=== PATIENT | female | born 1950 | race Caucasian/White ===

== ENCOUNTER 2018-09-18 13:51 | Emergency (ER) | payer OTHER ==
--- OUTSIDE RECORDS SUMMARY | 2018-09-18 13:54 | XMS REPORT | Clinical Summary ---
:1950 Author Organization [facility] Address [address] [place] [address] Care Team Providers Name Role Phone Asked, No Pcp Primary Care Provider Unavailable Allergies Active Allergy Reactions Severity Noted Date Comments Erythromycin 12/29/2015 Tetracycline 12/29/2015 Medications Medication Sig Dispensed Refills Start Date End Date Status levothyroxine (SYNTHROID, 10 11/30/2015 Active LEVOTHROID) 50 MCG tablet rosuvastatin (CRESTOR) 20 MG tablet 10 12/20/2015 Active losartan (COZAAR) 50 MG tablet 4 12/26/2015 Active Active Problems Problem Noted Date Effusion of ankle joint 12/29/2015 Effusion of wrist joint 12/29/2015 Pain, joint, hand 12/29/2015 Fever 12/29/2015 Chronic cough 12/29/2015 Family History Medical History Relation Name Comments Rheum arthritis Mother Relation Name Status Comments Mother Social History Tobacco Use Types Packs/Day Years Used Date Never Assessed Sex Assigned at Date Recorded Not on file Job Start Date Occupation Industry Not on file Not on file Not on file Travel History Travel Start Travel End No recent travel history available. Last Filed Vital Signs Not on file Plan of Treatment Health Maintenance Due Date Last Done Comments BREAST CANCER SCREENING 01/11/2002 COLONOSCOPY SCREENING 01/11/2002 SHINGLES VACCINES (#1) 01/11/2002 65+ PNEUMOCOCCAL VACCINE (1 of 2 - PCV13) 01/11/2017 INFLUENZA VACCINE 10/29/2018 Results Not on fileafter 09/17/2017 Advance Directives Patient has advance care planning documents on file. For more information, please contact:Ryan Tierney[address] [place] [address]
--- NOTE | 2018-09-18 14:37 | RAD REPORT ---
EXAM DESCRIPTION: RAD - Wrist Right 3 View - 09/18/2018 2:26 pm CLINICAL HISTORY: Fall, right wrist pain COMPARISON: None. FINDINGS: There is a transverse fracture through the metaphyseal portion of the distal radius. Appro ximately 15 degrees dorsal angulation is present with impaction along the dorsal margin. No pathologi c component. Ulna styloid is fractured. There is no dislocation or periosteal reaction noted. Radioca rpal joint space is slightly narrowed. No foreign body or other soft tissue abnormality. IMPRESSION: Distal right radius fracture with mild dorsal angulation and impaction along the dorsal margin.
[2018-09-18] MEDS ORDERED: KETOROLAC 30 MG/ML INJ ONE (14:45)
--- NOTE | 2018-09-18 16:32 | EDPHYS ---
Physician Documentation [facility] Name: Fely Cid Age: 68 yrs Sex: Female : 1950 Arrival Date: 09/18/2018 Time: 13:59 Bed 5 Private MD: ED Physician Parish Jules HPI: 09/18 14:16 This 68 yrs old presents to ER via Ambulatory with complaints of Wrist Injury. jr8 14:16 The patient or guardian reports decreased range of motion, deformity, pain. The jr8 complaints affect the right wrist diffusely. Context: The problem was sustained at home, resulted from a fall. Onset: The symptoms/episode began/occurred acutely, today. Modifying factors: The symptoms are alleviated by nothing, the symptoms are aggravated by movement. Associated signs and symptoms: The patient has no apparent associated signs or symptoms. The patient has not experienced similar symptoms in the past. The patient has not recently seen a physician. Stated that she tripped at home falling on outstretched hand. Williamson a pop in her right wrist region. Immediate swelling and presumed deformity to wrist present upon arrival . 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 - Social history:: Smoking status: Patient/guardian denies using tobacco. - Ebola Screening: : Patient denies travel to an Ebola-affected area in the 21 days before illness onset. ROS: 14:16 Eyes: Negative for injury, pain, redness, and discharge, ENT: Negative for injury, jr8 pain, and discharge, Neck: Negative for injury, pain, and swelling, Cardiovascular: Negative for chest pain, palpitations, and edema, Respiratory: Negative for shortness of breath, cough, wheezing, and pleuritic chest pain, Abdomen/GI: Negative for abdominal pain, nausea, vomiting, diarrhea, and constipation, Back: Negative for injury and pain, Skin: Negative for injury, rash, and discoloration. 14:16 MS/extremity: Positive for decreased range of motion, deformity, ecchymosis, pain, swelling, tenderness, of the right wrist. Exam: 14:16 Eyes: Pupils equal round and reactive to light, extra-ocular motions intact. Lids and jr8 lashes normal. Conjunctiva and sclera are non-icteric and not injected. Cornea within normal limits. Periorbital areas with no swelling, redness, or edema. ENT: Nares patent. No nasal discharge, no septal abnormalities noted. Tympanic membranes are normal and external auditory canals are clear. Oropharynx with no redness, swelling, or masses, exudates, or evidence of obstruction, uvula midline. Mucous membranes moist. Neck: Trachea midline, no thyromegaly or masses palpated, and no cervical lymphadenopathy. Supple, full range of motion without nuchal rigidity, or vertebral point tenderness. No Meningismus. Cardiovascular: Regular rate and rhythm with a normal S1 and S2. No gallops, murmurs, or rubs. Normal PMI, no JVD. No pulse deficits. Respiratory: Lungs have equal breath sounds bilaterally, clear to auscultation and percussion. No rales, rhonchi or wheezes noted. No increased work of breathing, no retractions or nasal flaring. Abdomen/GI: Soft, non-tender, with normal bowel sounds. No distension or tympany. No guarding or rebound. No evidence of tenderness throughout. Back: No spinal tenderness. No costovertebral tenderness. Full range of motion. Skin: Warm, dry with normal turgor. Normal color with no rashes, no lesions, and no evidence of cellulitis. Neuro: Awake and alert, GCS 15, oriented to person, place, time, and situation. Cranial nerves II-XII grossly intact. Motor strength 5/5 in all extremities. Sensory grossly intact. Cerebellar exam normal. Normal gait. 14:16 Musculoskeletal/extremity: Extremities: grossly normal except: noted in the right wrist: decreased ROM, pain, swelling, tenderness, over the right dorsal wrist, ROM: Patient has limited ROM due to pain , Circulation is intact in all extremities. Pulses: noted to be 2+ in the right radial artery and left radial artery, Sensation intact. Vital Signs: 14:06 BP 153 / 84; Pulse 72; Resp 18; Temp 97.7; Pulse Ox 99% on R/A; Weight 88.45 kg (R); aj1 Height 5 ft. 7 in. (170.18 cm) (R); 15:19 BP 147 / 79; Pulse 75; Resp 16; Temp 98; Pulse Ox 99% ; bp 14:06 Body Mass Index 30.54 (88.45 kg, 170.18 cm) aj1 Procedures: 14:38 Splinting: Splint applied to right wrist using Orthoglass splint, applied by tech. jr8 Examined by me, post splint application: neurovascular intact, 2+ distal pulses palpable, brisk capillary refill noted, Patient tolerated well. MDM: 14:01 Patient medically screened. jr8 14:36 Data reviewed: vital signs, nurses notes, radiologic studies, plain films. Data jr8 interpreted: Pulse oximetry: on room air is 99 %. Interpretation: normal. Counseling: I had a detailed discussion with the patient and/or guardian regarding: the historical points, exam findings, and any diagnostic results supporting the discharge/admit diagnosis, radiology results, the need for outpatient follow up, a orthopedic surgeon, to return to the emergency department if symptoms worsen or persist or if there are any questions or concerns that arise at home. ED course: Explained to patient that she has a stable radial and ulnar styloid fracture to the left wrist. Patient wanting me to page Dr. Branham to see if he will see her today. Explained to her that I can call but that he will more then likely want her to f/u on Friday since he is in Surgery. . ED course: Called Dr. Branham and consulted him. Wants her to just f/u on Friday . 09/18 14:06 Order name: XRAY Wrist RIGHT 3 view jr8 09/18 15:16 Order name: RAD EDMS Administered Medications: 14:15 Drug: TORadol - Ketorolac 15 mg {Note: GIVEN IM PER PROVIDER.} Route: IVP; Site: Other; bp 14:40 Follow up: Response: Pain is decreased bp Disposition: 15:28 Co-signature as Attending Physician, Parish Jules MD. rn Disposition: 09/18/18 14:40 Discharged to Home. Impression: Distal Radius fracture of the right wrist, Styloid proccess fracture of the right wrist . - Condition is Stable. - Discharge Instructions: Wrist Fracture Treated With Immobilization. - Prescriptions for Ibuprofen 800 mg Oral Tablet - take 1 tablet by ORAL route every 12 hours As needed take with food; 20 tablet. - Medication Reconciliation Form, Thank You Letter, Antibiotic Education, Prescription Opioid Use form. - Follow up: Kaiden Branham MD; When: 09/21/2018. - Problem is new. - Symptoms have improved. Signatures: Dispatcher [employer] EDBriana Dupont RN RN aj1 Parish Jules MD MD rn Roszak, Josh, PA PA jr8 Daniel Dyer RN RN bp Corrections: (The following items were deleted from the chart) 14:37 14:06 IV Saline Lock ordered. jr8 bp 15:20 14:40 09/18/2018 14:40 Discharged to Home. Impression: Distal Radius fracture of the bp right wrist; Styloid proccess fracture of the right wrist . Condition is Stable. Forms are Medication Reconciliation Form, Thank You Letter, Antibiotic Education, Prescription Opioid Use. Follow up: Kaiden Branham; When: 09/21/2018. Problem is new. Symptoms have improved. jr8
--- NOTE | 2018-09-18 16:33 | ER ---
Nurse's Notes [facility] Name: Fely Cid Age: 68 yrs Sex: Female : 1950 Arrival Date: 09/18/2018 Time: 13:59 Bed 5 Private MD: Diagnosis: Distal Radius fracture of the right wrist;Styloid proccess fracture of the right wrist Presentation: 09/18 14:04 Presenting complaint: Patient states: She lost her balance and fell backwards landing aj1 on her right wrist. Reports that she felt a pop when she fell. Transition of care: patient was not received from another setting of care. Onset of symptoms was September 18, 2018. Risk Assessment: Do you want to hurt yourself or someone else? Patient reports no desire to harm self or others. Initial Sepsis Screen: Does the patient meet any 2 criteria? No. Patient's initial sepsis screen is negative. Does the patient have a suspected source of infection? No. Patient's initial sepsis screen is negative. Care prior to arrival: None. 14:04 Method Of Arrival: Ambulatory aj1 14:04 Acuity: GIOVANA 3 aj1 Triage Assessment: 14:06 General: Appears in no apparent distress. uncomfortable, Behavior is calm, cooperative, aj1 appropriate for age. Pain: Complains of pain in right wrist. Neuro: Level of Consciousness is awake, alert, obeys commands. Cardiovascular: Patient's skin is warm and dry. Respiratory: Airway is patent Respiratory effort is even, unlabored, Respiratory pattern is regular, symmetrical. Musculoskeletal: Range of motion: limited in left wrist. Injury Description: Patient lost her balance. 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 - Social history:: Smoking status: Patient/guardian denies using tobacco. - Ebola Screening: : Patient denies travel to an Ebola-affected area in the 21 days before illness onset. Screenin:05 Abuse screen: Denies threats or abuse. Denies injuries from another. Nutritional bp screening: No deficits noted. Tuberculosis screening: No symptoms or risk factors identified. Fall Risk None identified. Assessment: 14:05 General: SEE TRIAGE NTOE. bp 15:19 Reassessment: PT D/C HOME AMBULATORY WITH FAMILY, DX WITH DISTAL RADIUS FX. bp Vital Signs: 14:06 BP 153 / 84; Pulse 72; Resp 18; Temp 97.7; Pulse Ox 99% on R/A; Weight 88.45 kg (R); aj1 Height 5 ft. 7 in. (170.18 cm) (R); 15:19 BP 147 / 79; Pulse 75; Resp 16; Temp 98; Pulse Ox 99% ; bp 14:06 Body Mass Index 30.54 (88.45 kg, 170.18 cm) aj1 ED Course: 13:59 Patient arrived in ED. mr 14:01 Florentino Ortiz PA is PHCP. jr8 14:01 Parish Jules MD is Attending Physician. jr8 14:05 Triage completed. aj1 14:05 Patient has correct armband on for positive identification. Bed in low position. Call bp light in reach. Side rails up X2. Adult w/ patient. 14:06 Arm band placed on Patient placed in an exam room. aj1 14:16 Daniel Dyer, BUCK is Primary Nurse. bp 14:19 X-ray completed. Portable x-ray completed in exam room. Patient tolerated procedure jb2 well. 14:39 Kaiden Branham MD is Referral Physician. jr8 15:14 Caden wrap to right elbow and right wrist Orthoglass splint: Sugar tong splint applied on jp3 right arm. Sling applied to right arm. 15:17 No provider procedures requiring assistance completed. Patient did not have IV access bp during this emergency room visit. Administered Medications: 14:15 Drug: TORadol - Ketorolac 15 mg {Note: GIVEN IM PER PROVIDER.} Route: IVP; Site: Other; bp 14:40 Follow up: Response: Pain is decreased bp Outcome: 14:40 Discharge ordered by . jr8 15:18 Discharged to home ambulatory, with family. bp 15:18 Condition: stable 15:18 Discharge instructions given to patient, Instructed on discharge instructions, follow up and referral plans. medication usage, Demonstrated understanding of instructions, follow-up care, medications, Prescriptions given X 1. 15:20 Patient left the ED. bp Signatures: Briana Gregory RN RN aj1 Madisyn Magaña mr Danielle, [place] jb2 Florentino Ortiz PA PA jr8 Daniel Dyer, BUCK RN bp Gio Reyes jp3
== END 2018-09-18 15:20 | disposition home or self-care (01) ==
LOC: ER 13:51
PROC: 2W3CX1Z Immobilization of Right Lower Arm using Splint (ICD-10-PCS; principal; 2018-09-18)
DX: S52.501A Unspecified fracture of the lower end of right radius, initial encounter for closed fracture (principal); S52.611A Displaced fracture of right ulna styloid process, initial encounter for closed fracture; W01.0XXA Fall on same level from slipping, tripping and stumbling without subsequent striking against object, initial encounter; Z88.1 Allergy status to other antibiotic agents; I10 Essential (primary) hypertension; E78.5 Hyperlipidemia, unspecified; E03.9 Hypothyroidism, unspecified
CPT/HCPCS: 96374; 99283

== ENCOUNTER 2019-08-27 21:30 | Observation (INO) | payer OTHER ==
--- OUTSIDE RECORDS SUMMARY | 2019-08-27 21:33 | XMS REPORT | Clinical Summary ---
:1950 Author Organization [facility] Address [address] [place] [address] Care Team Providers Name Role Phone Asked, No Pcp Primary Care Provider Unavailable Allergies Active Allergy Reactions Severity Noted Date Comments Erythromycin 12/29/2015 Tetracycline 12/29/2015 Medications Medication Sig Dispensed Refills Start Date End Date Status levothyroxine (SYNTHROID, 10 11/30/2015 Active LEVOTHROID) 50 MCG tablet rosuvastatin (CRESTOR) 20 MG tablet 11/30 Active losartan (COZAAR) 50 MG tablet 4 6 Active Active Problems Problem Noted Date Effusion [...] of 2 - PCV13) 01/11/2017 INFLUENZA VACCINE 10/30/2019 Results Not on fileafter 08/26/2018 Advance Directives For more information, please contact: [phone] Type Date 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
[2019-08-27 22:54] LABS: Absolute Lymphocytes (CBC) 2.3 K/uL (0.7-4.9); Basophils % 0.9 % (0-1.3); Hematocrit 36.1 % (36.0-45.0); Lymphocytes % 29.7 % (15.3-44.8); MPV 10.3 fL (7.6-11.3); RBC Red Blood Cell Count 3.76 M/uL (3.86-4.86)
[2019-08-27 22:55] LABS: Protime INR 0.85
[2019-08-27 23:17] LABS: ALT/SGPT 24 U/L (12-78); AST/SGOT 16 U/L (15-37); Albumin 3.6 g/dL (3.4-5.0); Alkaline Phosphatase 91 U/L (45-117); BUN Blood Urea Nitrogen 20 mg/dL (7-18); Bicarbonate 29 mmol/L (21-32); Bilirubin Direct < 0.1 mg/dL (0-0.2); Bilirubin Total 0.2 mg/dL (0.2-1.0); Glucose Level 90 mg/dL (74-106); Magnesium 2.3 mg/dL (1.8-2.4); NT PRO-BNP 64 pg/mL (<125); Potassium 4.1 mmol/L (3.5-5.1); Protein, Total 6.9 g/dL (6.4-8.2); Sodium Level 144 mmol/L (136-145); Troponin (Emerg Dept Use Only) < 0.02 ng/mL (0.0-0.045)
[2019-08-28] MEDS ORDERED: ASPIRIN 81 MG CHEWABLE TABLET ONE (00:47)
--- NOTE | 2019-08-28 00:52 | P.HP ---
Certification for Inpatient Patient admitted to: Observation With expected LOS: <2 Midnights Practitioner: I am a practitioner with admitting privileges, knowledge of patient current condition, hospital course, and medical plan of care. Services: Services provided to patient in accordance with Admission requirements found in Title 42 Section 412.3 of the Code of Federal Regulations Patient History Date of Service: 08/28/19 Reason for admission: Chest pressure History of Present Illness: 69-year-old woman with a history of hypertension and hypothyroidism presented emergency department with a complaint of chest pressure that has been present for about 1 week, intermittent in nature, severe to described as moderate. Patient reports associated palpitation and lightheadedness. She has apparently had similar problems in the past and have undergone stress test and wore a Holter monitor without identifying the course of her symptoms. She denied any cough or shortness of breath. She denied any fever. Chest x-ray done in the ED shows no acute disease. EKG demonstrated normal sinus rhythm. Initial troponin negative. Her risk factors include hyperlipidemia and hypertension. Patient is placed under observation for ACS rule out and cardiac monitoring. Allergies Tetracyclines Allergy (Verified 09/18/18 14:07) Hives/Rash - Past Medical/Surgical History -: Hypertension -: Hyperlipidemia -: Hypothyroidism - Family History Father -: Cancer - Social History Smoking Status: Never smoker Alcohol use: Yes CD- Drugs: No Caffeine use: Yes Place of Residence: Home Review of Systems Other: Except as documented, all other systems reviewed and negative. Physical Examination - Physical Exam General: Alert, In no apparent distress, Oriented x3 HEENT: Mucous membr. moist/pink, Sclerae nonicteric Neck: Supple, JVD not distended Respiratory: Clear to auscultation bilaterally, Normal air movement Cardiovascular: No edema, Normal pulses, Regular rate/rhythm Gastrointestinal: Normal bowel sounds, Soft and benign, No tenderness Musculoskeletal: No swelling, No erythema Integumentary: No rashes Neurological: Normal speech, Normal strength at 5/5 x4 extr - Studies Laboratory Data (last 24 hrs) 08/27/19 22:38: PT 10.1, INR 0.85 08/27/19 22:38: WBC 7.7, Hgb 12.2, Hct 36.1, Plt Count 168 08/27/19 22:38: Sodium 144, Potassium 4.1, BUN 20 H, Creatinine 1.33 H, Glucose 90, Magnesium 2.3, Total Bilirubin 0.2, AST 16, ALT 24, Alkaline Phosphatase 91 Assessment and Plan - Problems (Diagnosis) (1) Chest pressure Current Visit: Yes Status: Acute (2) Lightheadedness Current Visit: Yes Status: Acute (3) Hypothyroidism Current Visit: Yes Status: Acute (4) Hypertension Current Visit: Yes Status: Acute - Plan Place under observation. Telemetry Trend troponin Obtain echocardiogram Cardiology consult Patient heart rate is borderline bradycardic. Hold bisoprolol Continue hydrochlorothiazide for hypertension May have to replace bisoprolol with amlodipine. Checked TSH Continue home dose Synthroid. - Advance Directives Does patient have a Living Will: No Does patient have a Durable POA for Healthcare: No
[2019-08-28] MEDS ORDERED: hydroCHLOROthiazide 12.5 MG CAP PO ONE (02:05)
[2019-08-28 02:11] VITALS: BMI 29.7
[2019-08-28 02:12] VITALS: O2SAT 99
[2019-08-28 03:12] LABS: HDL Cholesterol 59 mg/dL (40-60); LDL Cholesterol, Calculated 104 (<130); Troponin I < 0.02 ng/mL (0.0-0.045)
[2019-08-28] MEDS ORDERED: ENOXAPARIN 40 MG/0.4 ML SQ SCH (09:00)
[2019-08-28] MEDS ORDERED: ASPIRIN EC 81 MG TAB PO SCH (09:00)
--- NOTE | 2019-08-28 12:01 | RAD REPORT ---
EXAM DESCRIPTION: RAD - Chest Single View - 08/27/2019 10:27 pm CLINICAL HISTORY: CHEST PAIN Chest pain. COMPARISON: CHEST SINGLE VIEW dated 04/06/2009; CHEST PA AND LAT 2 VIEW dated 01/17/1998 FINDINGS: Portable technique limits examination quality. The lungs are grossly clear. The heart is normal in size. No displaced fractures. IMPRESSION: No acute intrathoracic process suspected.
[2019-08-28 13:55] VITALS: BP 143/64; TEMP 97.7
--- NOTE | 2019-08-28 17:44 | CON ---
Date of Consultation: 08/28/2019 Reason For Consultation: Chest pain. History Of Present Illness: This is a 69-year-old female, history of hypertension, dyslipidemia, and hypothyroidism. She presented to the emergency room due to complaints of chest pressure that is rad iating to the left shoulder. Also, felt some nausea and vomited. Apparently, she has established ca rdiologist as an outpatient and had a stress test last time about 2 years ago that was negative. Thi s chest pressure now is becoming more frequent lately where it used to come once every 2 to 3 months, now it is a little more frequent and yesterday the attack was significant enough for her to decide t o come the emergency room. Since the last attack that lasted about 30 minutes, patient is chest pain free. Some of other symptom that she was having is dizziness, especially with movement. She denies having any nausea, vomiting, or diarrhea at the present time. Past Medical History: As outlined above in HPI. Medications: Refer to reconciliation sheet for detailed list. Allergies: ERYTHROMYCIN AND TETRACYCLINE. Social History: Does not smoke or drink. Does not use any drugs. Family History: No premature coronary artery disease or cancer. Review of Systems: All systems reviewed and they were negative except what is mentioned in the HPI. Physical Examination: Vital Signs: Temperature of 96.4, pulse of 61, breathing at 16, blood pressure 138/61, saturating 98 % on room air. General: Pleasant middle-aged female in no apparent distress. Head and Neck: Pupils are equal and reactive to light. Intact eye movements. No JVD. No cervical lymphadenopathy. Neck is supple. Thyroid is not enlarged. Lungs: Clear to auscultation bilaterally. No rhonchi, rales, or crackles. No accessory muscle use. Heart: Regular rate and rhythm. No extra sounds. Abdomen: Soft, nontender. Bowel sounds positive. No organomegaly. No masses or hernia. No rigidi ty or rebound. Extremities: No edema, clubbing, or cyanosis. Intact pulses. Skin: No rash. Neurologic: Alert, awake, oriented x3. No acute focal deficits appreciated. Lymph Nodes: No cervical or axillary lymphadenopathy. Investigations: Troponins x3 are negative and her creatinine is 1.33. LDL cholesterol is 104. TSH is 2.0. Assessment And Recommendation: 1.Chest pain. Has some typical features. However, it is not related to exertion per se and she has been pain free. I had a long discussion with her on further workup that needs to be done and recomm ended stress test versus directly going to coronary angiogram as her symptoms are more frequent recen tly. She expressed the wish to go home today as she has been feeling well. Since myocardial infarct ion was ruled out, at this point, I will be okay with her going home with strict instructions to repo rt to the emergency room immediately if any chest pain. Her EKG was totally normal. I gave her an o ption for a stress test versus coronary angiogram. She will think over it with her over the weekend and will contact me on Friday to proceed. Meanwhile, recommend aspirin 81 mg daily and patie nt probably can be released with some sublingual nitroglycerin for chest pain if needed. I would lik e to see the patient in the office this coming week to arrange for further plan of evaluation to rule out ischemic heart disease. I had a long discussion with her and her and they are agreeable to the plan. 2.Hypertension. Blood pressure is controlled. Notes that her creatinine is slightly elevated. It could be due to some dehydration, maybe hydrochlorothiazide should be discontinued and allow proper h ydration and reevaluate. 3.Dizziness. Part of her symptoms is probably due to dehydration. Now recommend to discontinue hyd rochlorothiazide and hydrated properly and reevaluate creatinine later. 4.Hyperlipidemia. Continue statin. Thank you for very much for this consultation. /ABE Voice ID: [id number] Report ID: [id number]
--- NOTE | 2019-08-30 17:31 | ER ---
Nurse's Notes [facility] Name: Fely Cid Age: 69 yrs Sex: Female : 1950 Arrival Date: 08/27/2019 Time: 21:34 Bed 18 Private MD: Diagnosis: Chest pain, unspecified Presentation: 08/26 21:39 Chief complaint: Patient states: Chest tightness and heaviness radiating to the back, ca1 lightheaded on and off for about a week. Tonight about 30 minutes ago, it has been more pronounced. Coronavirus screen: Proceed with normal triage. Patient denies a cough. Patient denies shortness of breath or difficulty breathing. Patient denies measured and/or subjective temperature greater than 100.4F prior to today's visit. Patient denies travel on a cruise ship or to a country the [facility] currently lists as an affected area. Patient denies contact with known and/or suspected case of COVID-19. Ebola Screen: Patient negative for fever greater than or equal to 101.5 degrees Fahrenheit, and additional compatible Ebola Virus Disease symptoms Patient denies exposure to infectious person. Patient denies travel to an Ebola-affected area in the 21 days before illness onset. No symptoms or risks identified at this time. Initial Sepsis Screen: Does the patient meet any 2 criteria? No. Patient's initial sepsis screen is negative. Does the patient have a suspected source of infection? No. Patient's initial sepsis screen is negative. Risk Assessment: Do you want to hurt yourself or someone else? Patient reports no desire to harm self or others. Onset of symptoms was August 27, 2019. 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 - Social history:: Smoking status: Patient denies any tobacco usage or history of. Screenin:45 Abuse screen: Denies threats or abuse. Denies injuries from another. Nutritional aj1 screening: No deficits noted. Tuberculosis screening: No symptoms or risk factors identified. 08/27 01:24 Fall Risk IV access (20 points). Ambulatory Aid- None/Bed Rest/Nurse Assist (0 pts). jd3 Gait- Normal/Bed Rest/Wheelchair (0 pts) Mental Status- Oriented to own ability (0 pts). Total [place] Fall Scale indicates No Risk (0-24 pts). Assessment: 08/26 21:45 General: Appears in no apparent distress. comfortable, Behavior is calm, cooperative, aj1 appropriate for age. Pain: Denies pain. Neuro: Level of Consciousness is awake, alert, obeys commands, Oriented to person, place, time, situation. Cardiovascular: Denies palpitations, shortness of breath, Heart tones S1 S2 present Patient's skin is warm and dry. Rhythm is sinus rhythm Chest pain is described as patient denies chest pain or pressure at this time, but states she has been having intermittent chest pressure for the past week that was worse today. quality is pressure, is located in left anterior chest wall radiates back. Respiratory: Airway is patent Respiratory effort is even, unlabored, Respiratory pattern is regular, symmetrical, Breath sounds are clear bilaterally. GI: No signs and/or symptoms were reported involving the gastrointestinal system. : No signs and/or symptoms were reported regarding the genitourinary system. EENT: No signs and/or symptoms were reported regarding the EENT system. Derm: No signs and/or symptoms reported regarding the dermatologic system. Skin is pink, warm \T\ dry. normal. Musculoskeletal: No signs and/or symptoms reported regarding the musculoskeletal system. Circulation, motion, and sensation intact. 22:54 Reassessment: Patient appears in no apparent distress at this time. No changes from aj1 previously documented assessment. Patient and/or family updated on plan of care and expected duration. Pain level reassessed. Patient is alert, oriented x 3, equal unlabored respirations, skin warm/dry/pink. 08/27 00:24 Reassessment: Patient appears in no apparent distress at this time. Patient and/or jd3 family updated on plan of care and expected duration. Pain level reassessed. Patient is alert, oriented x 3, equal unlabored respirations, skin warm/dry/pink. awaiting admission. 01:25 Reassessment: Patient appears in no apparent distress at this time. Patient and/or jd3 family updated on plan of care and expected duration. Pain level reassessed. Patient is alert, oriented x 3, equal unlabored respirations, skin warm/dry/pink. pt reported understanding of need for admission. Patient states feeling better. Vital Signs: 08/26 21:39 BP 162 / 68; Pulse 76; Resp 15 S; Temp 97.1(TE); Pulse Ox 99% on R/A; Weight 88 kg (R); ca1 Height 5 ft. 7 in. (170.18 cm) (R); Pain 0/10; 22:55 BP 143 / 69; Pulse 68; Resp 18; Pulse Ox 99% on R/A; aj1 08/27 00:24 BP 151 / 65; Pulse 72; Resp 17 S; Pulse Ox 100% on R/A; jd3 01:43 BP 151 / 65; Pulse 60; Resp 16 S; Pulse Ox 99% on R/A; jd3 08/26 21:39 Body Mass Index 30.38 (88.00 kg, 170.18 cm) ca1 ED Course: 08/26 21:34 Patient arrived in ED. bp1 21:42 Triage completed. ca1 21:44 Arm band placed on right wrist. ca1 21:45 Patient has correct armband on for positive identification. Bed in low position. Call aj1 light in reach. Side rails up X 1. manager monitoring on. Pulse ox on. NIBP on. 21:45 No provider procedures requiring assistance completed. aj1 21:46 Briana Gregory, BUCK is Primary Nurse. aj1 21:48 Claudio Castrejon PA is PHCP. jmm 21:48 Tony Gomez MD is Attending Physician. jmm 22:28 XRAY Chest (1 view) In Process Unspecified. EDMS 22:46 Inserted saline lock: 20 gauge in right hand, using aseptic technique. [facility] 08/27 00:25 Loki Burroughs is Hospitalizing Provider. jmm 01:24 Patient admitted, IV remains in place. jd3 Administered Medications: 01:03 Drug: Aspirin Chewable Tablet 324 mg Route: PO; jd3 01:26 Follow up: Response: No adverse reaction jd3 Outcome: 00:25 Decision to Hospitalize by Provider. анна 01:23 Admitted to Med/surg accompanied by tech, via wheelchair, room 209, with chart, Report jd3 called to Ashley JANE 01:23 Condition: stable 01:23 Instructed on the need for admit, Demonstrated understanding of instructions. 02:00 Patient left the ED. malik Signatures: Dispatcher [employer] EDMS Briana Gregory RN RN aj1 Claudio Castrejon PA PA jmm Davies, Jonathon, RN RN jd3 Che Sauceda RN RN ca1 José Miguel Sanford 4 Annalise Marino [facility]
--- NOTE | 2019-08-30 17:31 | EDPHYS ---
Physician Documentation [facility] Name: Fely Cid Age: 69 yrs Sex: Female : 1950 Arrival Date: 08/27/2019 Time: 21:34 Bed 18 Private MD: ED Physician Tony Gomez HPI: 08/26 21:46 This 69 yrs old Female presents to ER via Ambulatory with complaints of Light jmm Headed, Shoulder Pain. 21:46 The patient or guardian reports chest pain that is located primarily in the substernal jmm area. Onset: gradually, 1 week(s) ago. The pain radiates to the left scapula. Associated signs and symptoms: Pertinent positives: lightheadedness, Pertinent negatives: shortness of breath. The chest pain is described as aching, a pressure. Duration: The patient or guardian reports multiple episodes, that wax and wane. Modifying factors: The symptoms are alleviated by nothing. the symptoms are aggravated by nothing. This is a 69 year old female with a history of hlp, htn, hypothyroidism that presents to the ED with complaints of intermittent chest pressure beginning approx 1 week ago. Patient states symptoms intensified this evening with lightheadedness. . 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 - Social history:: Smoking status: Patient denies any tobacco usage or history of. ROS: 21:46 Constitutional: Negative for fever, chills, and weight loss. jmm 21:46 Cardiovascular: Positive for chest pain. 21:46 Neuro: Positive for weakness. 21:46 All other systems are negative. Exam: 21:46 Constitutional: This is a well developed, well nourished patient who is awake, alert, jmm and in no acute distress. Head/Face: atraumatic. Eyes: EOMI, no conjunctival erythema appreciated ENT: Moist Mucus Membranes Neck: Trachea midline, Supple Chest/axilla: Normal chest wall appearance and motion. Cardiovascular: Regular rate and rhythm. No edema appreciated Respiratory: Normal respirations, no respiratory distress appreciated Abdomen/GI: Non distended, soft Back: Normal ROM Skin: General appearance color normal MS/ Extremity: Moves all extremities, no obvious deformities appreciated, no edema noted to the lower extremities Neuro: Awake and alert, normal gait Psych: Behavior is normal, Mood is normal, Patient is cooperative and pleasant 22:16 ECG was reviewed by the Attending Physician. [facility] Vital Signs: 21:39 BP 162 / 68; Pulse 76; Resp 15 S; Temp 97.1(TE); Pulse Ox 99% on R/A; Weight 88 kg (R); ca1 Height 5 ft. 7 in. (170.18 cm) (R); Pain 0/10; 22:55 BP 143 / 69; Pulse 68; Resp 18; Pulse Ox 99% on R/A; aj1 08/27 00:24 BP 151 / 65; Pulse 72; Resp 17 S; Pulse Ox 100% on R/A; jd3 01:43 BP 151 / 65; Pulse 60; Resp 16 S; Pulse Ox 99% on R/A; jd3 08/26 21:39 Body Mass Index 30.38 (88.00 kg, 170.18 cm) ca1 MDM: 08/26 21:51 Patient medically screened. [facility] 08/27 00:24 The patient was given aspirin in the Emergency Department. Data reviewed: vital signs, [facility] nurses notes, lab test result(s), radiologic studies, plain films. ED course: I discussed the patient with Dr. Burroughs whom accepted admission. . 08/26 21:48 Order name: Basic Metabolic Panel; Complete Time: 23:20 [facility] 08/26 21:48 Order name: CBC with Diff; Complete Time: 22:55 [facility] 08/26 21:48 Order name: LFT's; Complete Time: 23:20 [facility] 08/26 21:48 Order name: Magnesium; Complete Time: 23:20 [facility] 08/26 21:48 Order name: NT PRO-BNP; Complete Time: 23:20 [facility] 08/26 21:48 Order name: PT-INR; Complete Time: 22:55 [facility] 08/26 21:48 Order name: Troponin (emerg Dept Use Only); Complete Time: 23:20 [facility] 08/26 21:48 Order name: XRAY Chest (1 view) [facility] 08/26 21:48 Order name: EKG; Complete Time: 21:49 [facility] 08/26 21:48 Order name: Cardiac monitoring; Complete Time: 22:23 [facility] 08/26 21:48 Order name: EKG - Nurse/Tech; Complete Time: 22:23 [facility] 08/26 21:48 Order name: IV Saline Lock; Complete Time: 22:54 [facility] 08/26 21:48 Order name: Labs collected and sent; Complete Time: 22:54 [facility] 08/26 21:48 Order name: O2 Per Protocol; Complete Time: 22:23 [facility] 08/26 21:48 Order name: O2 Sat Monitoring; Complete Time: 22:24 jm EC/29 22:16 Rate is 61 beats/min. Rhythm is regular. QRS [place] is Normal. CO interval is normal. QRS jmm interval is normal. QT interval is normal. No Q waves. T waves are Normal. No ST changes noted. Reviewed by me. Administered Medications: 08/27 01:03 Drug: Aspirin Chewable Tablet 324 mg Route: PO; jd3 01:26 Follow up: Response: No adverse reaction jd3 Disposition: 05:36 Co-signature as Attending Physician, Tony Gomez MD. [email or web address] Disposition: 08/28/19 00:25 Hospitalization ordered by Loki Burroughs for Observation. Preliminary diagnosis is Chest pain, unspecified. - Bed requested for Telemetry/MedSurg (observation). - Status is Observation. jd3 - Condition is Stable. - Problem is new. - Symptoms are unchanged. Signatures: Dispatcher [employer] EDMS Claudio Castrejon PA PA jmm Garcia, Cindy, RN RN cg Davies, Jonathon, RN RN jd3 Acob, Cheryl, RN RN ca1 Holmes, Maurice, MD MD mh7 Corrections: (The following items were deleted from the chart) 01:03 00:25 Hospitalization Ordered by Loki Burroughs for Observation. Preliminary diagnosis cg is Chest pain, unspecified. Bed requested for Telemetry/MedSurg (observation). Status is Observation. Condition is Stable. Problem is new. Symptoms are unchanged. jmm 02:00 01:03 08/28/2019 00:25 Hospitalization Ordered by Loki Burroughs for Observation. jd3 Preliminary diagnosis is Chest pain, unspecified. Bed requested for Telemetry/MedSurg (observation). Status is Observation. Condition is Stable. Problem is new. Symptoms are unchanged.
== END 2019-08-28 13:23 | disposition home or self-care (01) ==
LOC: ER 21:30 → ERHOLD 08-28 01:05 → 2ND 08-28 01:24
PROVIDERS: ADMIT Internal Medicine; ATTEND Family Medicine
DX: R07.89 Other chest pain (principal); I10 Essential (primary) hypertension; E03.9 Hypothyroidism, unspecified; E78.5 Hyperlipidemia, unspecified; R42 Dizziness and giddiness
CPT/HCPCS: 93005; 85025; 80048; 36415; 83735; 85610; 80061; 80076; 84443; 84484 ×3; 83880; 71045; 99285; J1650; G0378 ×2